=== PATIENT | male | born 1985 | race Caucasian/White ===

== ENCOUNTER 2020-12-16 10:03 | Emergency (ER) | payer OTHER, SELFPAY ==
[2020-12-16 10:08] VITALS: BP 137/80; PULSE 59; RESP 16; TEMP 36.5; O2SAT 97; BMI 24.3
--- NOTE | 2020-12-16 10:13 | CT_ITS ---
WS: [id number] CT HEAD TECHNIQUE: Noncontrast CT of the head obtained from the skullbase to the vertex. CLINICAL INFORMATION: injury COMPARISON: None. DLP: 820.[address] scans at [facility] use at least one of these dose optimization techniques: automat ed exposure control; mA and/or kV adjustment per patient size (includes targeted exams where dose is matched to clinical indication); or iterative reconstruction. FINDINGS: No evidence of intracranial hemorrhage or mass effect. Ventricular system and basal cisterns are talavera nt. No extra-axial fluid collections. No evidence of mass or mass effect. Normal villegas-white different iation. Paranasal sinuses and mastoid air cells are well aerated. . Left scalp laceration and edema. No acute fractures. CT/CT head wo con* [id number] IMPRESSION: 1. No evidence of intracranial hemorrhage or mass effect. 2. Left scalp laceration and edema. No visualized fractures. 3. No acute intracranial findings.
--- NOTE | 2020-12-16 10:13 | XR_ITS ---
WS: [id number] Left hand, 3 views, 12/16/2020 Clinical Data: injury Comparison: None. Findings: No fractures or dislocations are seen. The soft tissues are unremarkable. The joint spaces are normal XR/XR hand LT min 3V* [id number] Impression: Negative left hand.
--- NOTE | 2020-12-16 10:14 | W.ED.HEATRA ---
HPI - Head Injury General: Chief complaint: Trauma Stated complaint: Head injury/hand injury Time Seen by Provider: 12/16/20 10:09 Source: patient Mode of arrival: ambulatory Limitations: no limitations History of Present Illness: HPI Narrative: Patient is a 35-year-old male who presents to ED today for evaluation after a tree limb fell on his head. He is complaining of a headache. He is also having some left hand pain. He complained of dizziness and blurry vision for approximately an hour after he was struck in the head. There was no LOC. Patient is ambulated and articulating normal. He has abrasions to his bilateral upper extremities. Last tetanus is unknown. He denies neck or back pain. MD Complaint: head injury Associated symptoms: Deny confusion, nausea, neck pain, vertigo or vomiting Review of Systems Eyes: Denies: change in vision, blurry vision, floaters or seeing flashes Card: Denies: chest pain Resp: Denies: dyspnea GI: Denies: abdominal pain, nausea or vomiting Musc: Reports: extremity pain (L hand pain); Denies: neck pain, back pain, extremity swelling, joint pain, joint swelling, joint redness, joint warmth or joint stiffness Skin/Breast: Reports: other (reports scalp hematoma) Neuro: Reports: headache(s); Denies: numbness in extremities, weakness in extremities, sensory changes, lack of coordination, difficulty walking, dizziness, vertigo or confusion Physical Exam Const: COMMON NORMALS: no acute distress, average body habitus, patient oriented x3, no limitations, healthy appearing, alert and well nourished GENERAL APPEARANCE: cooperative ORIENTATION/CONSCIOUSNESS: Yes awake, Yes oriented to person, Yes oriented to place and Yes oriented to time HENMT: COMMON NORMALS: normocephalic, hearing grossly normal bilaterally, external ears normal, EAC's normal and TM's normal bilaterally HEAD & SCALP: normal to inspection, normocephalic and other (posterior scalp hematoma present) EXTERNAL EAR: Yes external ears normal EXTERNAL AUDITORY CANAL: EAC's normal TYMPANIC MEMBRANE: TM's normal bilaterally Eye: COMMON NORMALS: Equal, round and reactive pupils present and EOMs intact bilaterally GENERAL EYE: appearance normal, both eyes and all related structures PUPIL: Yes Equal, round and reactive pupils present Neck/C-Spine: COMMON NORMALS: full ROM CERVICAL SPINE: Yes cervical ROM normal, No pain with cervical ROM and No Cervical spine tenderness Chest: COMMONS NORMALS: normal inspection of the chest and normal palpation of entire chest wall Resp: COMMON NORMALS: normal respiratory effort Back/Pelvis: COMMON NORMALS: thoracic and lumbar spine normal to inspection, no thoracic nor lumbar tenderness and thoraco-lumbar ROM normal Extremity: COMMON NORMALS: normal to inspection and full ROM GENERAL: Yes normal exam except as noted OTHER: TTP palmar side of L index MCP joint; no swelling; painful but full ROM; NV intact Neuro: KEV COMA SCALE: document GCS findings [place] coma scale eye opening: Spontaneous Kev coma scale verbal response: Orientated [place] coma scale motor response: Obey commands [place] coma scale total score: 15 COMMON NORMALS: patient oriented x3, CN's II-XII intact bilaterally, moves all extremities, no focal motor deficits, no sensory deficits noted and gait normal SENSORIUM/ORIENTATION: Yes alert, Yes oriented to person, Yes oriented to place and Yes oriented to time Skin: OTHER: scalp hematoma, superficial abrasions to R elbow/forearm-no pain, abrasions to L dorsal hand; otherwise normal skin exam Course Vital Signs: Vital signs: Vital Signs Temperature 97.7 F 12/16/20 10:08 Pulse Rate 72 12/16/20 10:54 Respiratory Rate 16 12/16/20 10:54 Blood Pressure 137/80 12/16/20 10:54 Pulse Oximetry 97 12/16/20 10:54 MDM - Head Injury MDM Narrative: Medical decision making narrative: Of note-CT head reporting scalp laceration-there is no laceration present on exam. Imaging Data^: XR L hand: Radiologist's impression: [address] [address] XRay Report Signed Patient: Cecilio Ward Unit #: [id number] : 1985 Age/Sex: 35 / M ADM Date: 12/16/20 Loc: ER Room/Bed: Attending Dr: Ordering Provider/Ordering MD: Viviana Paez Date of Service: 12/16/20 Procedure(s): XR hand LT min 3V* [id number] Accession Number(s): [id number] Report Number: [id number] WS: [id number] Left hand, 3 views, 12/16/2020 Clinical Data: injury Comparison: None. Findings: No fractures or dislocations are seen. The soft tissues are unremarkable. The joint spaces are normal XR/XR hand LT min 3V* [id number] Impression: Negative left hand. Dictated By: Yomaira Renee MD Signed By: Yomaira Renee MD Signed Date/Time: 12/16/20 1028 DD/ 1028 CT Head: Radiologist's impression: [address] [place] [address] CT Scan Report Signed Patient: Cecilio Ward Unit #: [id number] : 1985 Age/Sex: 35 / M ADM Date: 12/16/20 Loc: ER Room/Bed: Attending Dr: Ordering Provider/Ordering MD: Viviana Paez Date of Service: 12/16/20 Procedure(s): CT head wo con* [id number] Accession Number(s): [id number] Report Number: [id number] WS: [id number] CT HEAD TECHNIQUE: Noncontrast CT of the head obtained from the skullbase to the vertex. CLINICAL INFORMATION: injury COMPARISON: None. DLP: 820.[address] scans at [facility] use at least one of these dose optimization techniques: automated exposure control; mA and/or kV adjustment per patient size (includes targeted exams where dose is matched to clinical indication); or iterative reconstruction. FINDINGS: No evidence of intracranial hemorrhage or mass effect. Ventricular system and basal cisterns are patent. No extra-axial fluid collections. No evidence of mass or mass effect. Normal villegas-white differentiation. Paranasal sinuses and mastoid air cells are well aerated. . Left scalp laceration and edema. No acute fractures. CT/CT head wo con* [id number] IMPRESSION: 1. No evidence of intracranial hemorrhage or mass effect. 2. Left scalp laceration and edema. No visualized fractures. 3. No acute intracranial findings. Dictated By: Amilcar Cueto MD Signed By: Amilcar Cueto MD Signed Date/Time: 12/16/20 1056 DD/ 1050 Discharge Plan Discharge Patient Disposition: Home Clinical Impression: Left hand pain Laceration of scalp Qualifiers: Encounter type: initial encounter Qualified Code(s): S01.01XA - Laceration without foreign body of scalp, initial encounter Condition: Stable Discharge Orders: Discharge ED (Routine); Ordered 12/16/20 Ordered By: Viviana Paez Patient Instructions: Scalp Contusion in Adults (ED) Coding Level of Care Code ED Assembly And Packing Supervisor for Jason Fwlauren Exam Comprehensive
[2020-12-16] MEDS: tetanus-diphtheria tox (adult) 0.5 mL SDV IM (10:44)
[2020-12-16 10:54] VITALS: BP 137/80; PULSE 72; RESP 16; O2SAT 97
[2020-12-16 11:21] VITALS: BP 130/80; PULSE 63; RESP 14; O2SAT 97
== END 2020-12-16 11:22 | disposition home or self-care (01) ==
PROVIDERS: Emergency Provider Physician Assistant
DX: S01.01XA Laceration without foreign body of scalp, initial encounter (principal); M79.642 Pain in left hand; W20.8XXA Other cause of strike by thrown, projected or falling object, initial encounter; Z23 Encounter for immunization
CPT/HCPCS: 70450; 73130; 90471; 90714; 99283

== ENCOUNTER 2022-05-22 02:13 | Emergency (ER) | payer OTHER, SELFPAY ==
[2022-05-22 02:21] VITALS: BP 149/80; PULSE 89; RESP 16; TEMP 37.1; O2SAT 98; BMI 25.6
[2022-05-22 02:28] VITALS: BP 149/80; PULSE 89; RESP 16; TEMP 37.1; O2SAT 98
--- NOTE | 2022-05-22 02:28 | XRR_ITS ---
PROCEDURE INFORMATION: Exam: XR Left Wrist Exam date and time: 05/22/2022 2:53 AM Age: 37 years old Clinical indication: Injury or trauma; Fall; Blunt trauma (contusions or hematomas); Wrist; Left TECHNIQUE: Imaging protocol: Radiologic exam of the Left wrist. Views: 3 or more views. COMPARISON: No relevant prior studies available. FINDINGS: Bones/joints: Acute comminuted intra-articular left distal radius fracture with minimal to mild dorsal displacement. Soft tissues: Left wrist soft tissue swelling and mild deformity. XR/XR wrist LT min 3V* [id number] IMPRESSION: Acute comminuted intra-articular left distal radius fracture with minimal to mild dorsal displacement.
--- NOTE | 2022-05-22 02:28 | XRR_ITS ---
PROCEDURE INFORMATION: Exam: XR Left Hand Exam date and time: 05/22/2022 2:53 AM Age: 37 years old Clinical indication: Injury or trauma; Fall; Blunt trauma (contusions or hematomas); Hand; Left TECHNIQUE: Imaging protocol: Radiologic exam of the Left hand. Views: 3 or more views. COMPARISON: No relevant prior studies available. FINDINGS: Bones/joints: Left hand osseous structures appear intact. No dislocation. Acute comminuted intra-articular left distal radius fracture with minimal to mild dorsal displacement. Soft tissues: Left wrist soft tissue swelling. XR/XR hand LT min 3V* [id number] IMPRESSION: Acute comminuted intra-articular left distal radius fracture with minimal to mild dorsal displacement.
[2022-05-22] MEDS: HYDROcodone-acetaminophen 5-325 mg Tablet 1 TAB PO (02:31)
--- NOTE | 2022-05-22 02:34 | W.ED.EXTPRO ---
HPI - Extremity Problem General: Chief complaint: Extremity Injury, Upper Stated complaint: left arm injury Time Seen by Provider: 05/22/22 02:26 History of Present Illness: 37-year-old male patient comes in today for complaints of injury to the left wrist. Patient was loading up his trailer after his son's race in [place] when he fell off the side catching himself with outstretched arm. Incident occurred about 5:00 on the . Patient come back to have it evaluated in his local ER. Patient has swelling and tenderness to the wrist. Some obvious deformity is noted. Review of Systems General: Reports: 10 or more systems reviewed and unremarkable except in HPI and below Musc: Reports: extremity pain Physical Exam Const: COMMON NORMALS: alert HENMT: COMMON NORMALS: normocephalic HEAD & SCALP: normocephalic Neck/C-Spine: COMMON NORMALS: full ROM Resp: COMMON NORMALS: normal respiratory effort and clear to auscultation bilaterally AUSCULTATION: clear to auscultation bilaterally Cardio: COMMON NORMALS: regular rate RATE: regular rate Back/Pelvis: COMMON NORMALS: thoracic and lumbar spine normal to inspection Extremity: LEFT UPPER EXTREMITY: Yes wrist (Swelling and tenderness to touch) Left wrist: Yes inspection, Yes palpation and Yes ROM and Yes hand & digits (Dorsal swelling) Left hand and digits: Yes inspection, Yes palpation and Yes ROM Neuro: SENSORIUM/ORIENTATION: Yes alert Skin: COMMON NORMALS: no rashes or lesions noted GENERAL SKIN EXAM: no rashes or lesions noted Course Vital Signs: Vital signs: Vital Signs Temperature 98.7 F 05/22/22 02:28 Pulse Rate 89 05/22/22 02:28 Respiratory Rate 16 05/22/22 02:28 Blood Pressure 149/80 05/22/22 02:28 Pulse Oximetry 98 05/22/22 02:28 MDM - Extremity (Nontraumatic) Medical Decision Making 37-year-old male patient comes in today with injury to the left wrist and hand. On exam there is some obvious swelling to the distal forearm wrist area. Patient also has some swelling to the dorsal hand. Decreased range of motion due to pain and swelling is noted. Differential diagnosis includes dislocation, fracture, hematoma. X-ray notes a distal radial fracture comminuted. Recommend patient follow-up with orthopedic surgeon for further treatment. Case management was requested for referral. Patient was written for short course of hydrocodone to help with pain. Patient reported understanding of care plan and need for follow-up. Discharge Plan Discharge Patient Disposition: Home Clinical Impression: Distal radius fracture, left Qualifiers: Encounter type: initial encounter Fracture type: closed Fracture morphology: unspecified fracture morphology Qualified Code(s): S52.502A - Unspecified fracture of the lower end of left radius, initial encounter for closed fracture Condition: Stable Prescriptions: New hydrocodone-acetaminophen 5-325 mg tablet 1 tab PO Q6H PRN (Reason: pain) Qty: 10 0RF Discharge Orders: Discharge ED (Routine); Ordered 05/22/22 Ordered By: Deuce Huerta Discharge Diet: Usual diet Discharge Activity: Limit activity as instructed Patient Instructions: Wrist Fracture in Adults (ED) Activity Restrictions/Additional Instructions: Keep splint clean and dry. Activity as tolerated. Use sling for comfort and support. Follow-up with primary care as needed. Case management will contact you regarding appointment with orthopedist office. Coding Level of Care Code ED Director Of Convention Services for Jason Fwd Exam Comprehensive
[2022-05-22 03:12] VITALS: BP 149/80; PULSE 89; RESP 16; TEMP 37.1; O2SAT 98
--- NOTE | 2022-05-22 10:55 | DCPLANNER ---
Addendum entered by Jennifer Page 05/25/22 14:24: Patient had a follow up appointment scheduled for 05.22.[address] Albright at ortho - patient did attend appointment. Original Note: online services manager had message to schedule a follow up appointment for patient with ortho. online services manager sent patients information to the front office staff at ortho. Patients information will be printed and reviewed. Clinic will call patient with appointment information.
== END 2022-05-22 03:13 | disposition home or self-care (01) ==
PROVIDERS: Emergency Provider Nurse Practitioner Family
DX: S52.502A Unspecified fracture of the lower end of left radius, initial encounter for closed fracture (principal); W17.89XA Other fall from one level to another, initial encounter
CPT/HCPCS: 29125; 73110; 73130; 99283

== ENCOUNTER 2022-05-22 16:17 | Outpatient (CLI) | payer OTHER, SELFPAY | END 2022-05-22 16:18 | disposition home or self-care (01) | LOC: SPT 16:18 | PROVIDERS: Visit Provider Specialist | DX: Z46.89 Encounter for fitting and adjustment of other specified devices (principal); S52.592D Other fractures of lower end of left radius, subsequent encounter for closed fracture with routine healing; X58.XXXD Exposure to other specified factors, subsequent encounter | CPT/HCPCS: 97760; L3982 ==

== ENCOUNTER 2022-05-23 07:48 | Day surgery (SDC) | payer OTHER, SELFPAY ==
[2022-05-22 16:26] VITALS: BMI 26.2
[2022-05-23] VITALS (8 sets, daily range): BP systolic 96–146; BP diastolic 52–98; PULSE 63–87; RESP 12–18; TEMP 36.2–36.7; O2SAT 96–98
--- NOTE | 2022-05-23 | SCC_ITS ---
Procedure done: Open reduction internal fixation left intra-articular comminuted distal radius fracture 147.5 seconds of fluoroscopic guidance, for a cumulative dose of 4.89 mGy, was provided to Dr. Albright by the radiology department. C-arm images of the LEFT wrist were saved for the patient's permanent record. [facility]
--- NOTE | 2022-05-23 | XR_ITS ---
WS: [id number] Exam: XR wrist LT 2V [id number] Date/Time of Exam: 05/23/2022 12:00 AM Reason For Exam: ORIF Left distal wrist Intraoperative lateral C-arm images of the left wrist are submitted for evaluation. There has been volar plate and screw fixation involving a fracture of the distal radius. Alignment is satisfactory in the lateral projection but no AP view of the wrist is available for review at this t ale. No other significant finding on this limited series.
[2022-05-23] MEDS: sodium chloride 0.9% 1,000 ML 30 ML IV (08:15)
[2022-05-23] MEDS: acetaminophen 1,000 MG/100 ML PIGGYBACK 400 MG IV (08:16)
[2022-05-23] MEDS: CELEcoxib 100 mg Capsule 400 MG PO (08:18)
--- NOTE | 2022-05-23 10:46 | W.PM.OPSUD ---
Surgery/Procedure H&P Update DATE OF PROCEDURE: May 23, 2022 DATE H&P PERFORMED: 05/22/22 H&P UPDATE INFORMATION: I have reviewed H&P completed within last 30 days, I have examined patient prior to procedure, No changes to prior documentation and H&P is in [facility] on date indicated PREOP DIAGNOSIS: Comminuted left distal radius fracture PLANNED PROCEDURE: Operation Date: 05/23/22 12:00 Proposed Procedures p LEFT OPEN REDUCTION INTERNAL FIXATION DISTAL RADIUS 51047,S52.509A(Left) - Juliette Albright MD Related Problem List Diagnoses (1) Distal radius fracture, left: Qualifiers: Encounter type: initial encounter Fracture morphology: other intra-articular Fracture type: closed Qualified Code(s): S52.572A - Other intraarticular fracture of lower end of left radius, initial encounter for closed fracture
--- NOTE | 2022-05-23 10:47 | ANES.PREANE2 ---
Pre-Anesthetic Assessment Height/Weight: Height 1.91 m Weight 95.254 kg Temp Pulse Resp BP Pulse Ox O2 Del Method 97.8 F 63 18 125/79 98 05/23/22 08:03 05/23/22 08:03 05/23/22 08:03 05/23/22 08:03 05/23/22 08:03 05/23/22 08:03 Preop Diagnosis: Comminuted left distal radius fracture Operation Date: 05/23/22 12:00 Proposed Procedures p LEFT OPEN REDUCTION INTERNAL FIXATION DISTAL RADIUS 67168,S52.509A(Left) - Juliette Albright MD Familial anesthetic complications: None Was Beta Yuli taken within 24 hours: N/A Was Clonidine taken within 24 hours: N/A Last intake: Intake Last Liquid Date 05/22/22 Last Liquid Time 20:00 Last Solid Date 05/22/22 Last Solid Time 17:00 Social No alcohol and No tobacco Exam alert, oriented x 3, clear to auscultation bilaterally and regular rate & rhythm Airway Mallampati: Class II Dentition: full Anesthetic Plan ASA status: 1 Anesthesia: General and Regional (specify below) Risk of > 500 ml blood loss (7ml/kg in children): No Medications/Allergies Home Medications Medication Instructions Recorded Confirmed Last Taken Type FAST FORM COCK UP SPLINT #1 ea 05/22/22 05/22/22 Unknown Rx hydrocodone 5 mg-acetaminophen 325 1 tab PO Q6H PRN pain #10 tabs 05/22/22 05/23/22 05/22/22 Rx mg tablet Allergies Allergy/AdvReac Type Severity Reaction Status Date / Time No Known Allergies Allergy Verified 05/22/22 16:23 Current Medications Generic Name Dose Route Start Last Admin Trade Name Freq PRN Reason Stop Dose Admin Sodium Chloride 1,000 mls @ 30 mls/hr 05/23/22 08:00 05/23/22 08:15 Sodium Chloride 0.9% IV 05/24/22 07:59 30 mls/hr .Q24H NACHO Administration PFSH Anesthesia Social History Smoking and tobacco status: never smoked Data Anesthesia Cardiac Studies: No Data to Display
--- NOTE | 2022-05-23 11:09 | ANES.PROC ---
Anesthesia Procedures Procedure/Date: 05/23/22 Nerve Block ^: Nerve Block 1: Main Anesthesia: general anesthesia Time Out Performed: Yes Consent: requested by attending/covering physician, from patient, risks and benefits reviewed and patient agrees to proceed Nerve block location: axillary (L + musculcutaneous) Anesthesia monitors applied: pulse oximetry, EKG, BP cuff and oxygen Nerve block position: supine Anesthetic Used: ropivicaine 0.5% (30) and with decadron (4 mg) Ultrasound used to: recognize landmarks and visualize and ID brachial plexus Nerve Stimulator Used?: No Interscalene/Femoral BLK: 2 stimuplex 22 g needle used for position and inplane approach, visualize local anesthetic spread and no vascular puncture identified Injection: neg aspiration of heme and paresthesia +/- Patient Tolerated Procedure: well and no complications Complications: none
[2022-05-23] MEDS: ceFAZolin 2,000 MG in sodium chloride 0.9% (plus) 50 ML 100 MG IV (12:30)
[2022-05-23] MEDS: ceFAZolin 1,000 mg SDV 1000 MG IRRIGATION (13:06)
--- NOTE | 2022-05-23 13:57 | PM.OP ---
Operative Report Date of procedure: May 23, 2022 Pre-op diagnosis: Comminuted left distal radius intraarticular fracture Post-op diagnosis: Comminuted left distal radius intraarticular fracture Post-op findings: Comminution of the distal radius with significant angulation Procedure done: Open reduction internal fixation left intra-articular comminuted distal radius fracture Implants: Belle distal radius volar plate, standard extra short Specimens removed/disposition: None Pathology: none sent Surgeon: Juliette Albright [employer] Manager: [facility] operating room technicians Anesthesia: General (Per LMA, ASA 1) Estimated blood loss (mL): 5 Tourniquet time (min): 60 (At 250 mmHg) IV fluids (mL): 800 Urine output (mL): 0 (No Farfan) Complications: None Findings: Significantly comminuted intra-articular distal radius fracture with significant displacement Condition: stable Disposition: PACU (Then return to same-day surgery for discharge home with family) Brief History: This 37-year-old gentleman was in his usual state of health when he fell from a trailer while removing 4 wheelers. He fell directly onto his left upper extremity. He had deformity and pain immediately. He has an intra-articular comminuted angulated distal radius fracture. After discussion in the office, we elected to proceed with open reduction internal fixation to give him the best functional result. Risks and complications were discussed with the patient and consents were signed. Questions were answered. Procedure: Patient was brought to the operating theater, and after undergoing adequate general anesthesia, LMA, ASA 1, the patient's left upper extremity was prepped and draped in usual fashion utilizing DuraPrep.? A supplemental block was placed per anesthesia.? The patient had a tourniquet placed high on the arm prior to prepping and draping.? Following prepping and draping, the arm was exsanguinated and the tourniquet was elevated.? Total tourniquet time was 60 minutes at 250 mmHg.? Prior to commencement of the surgical procedure, a surgical pause was performed.? At the time of the surgical pause, we confirmed the site and side of surgery as well as the patient's identity and preoperative surgical markings.? We also confirmed availability of equipment and appropriate preoperative IV antibiotics which was Ancef 2 g.? Fluoroscopy was also brought into position so that we could visualize the fracture and hardware throughout the surgical procedure.? The fracture was evaluated prior to tourniquet placement. Following elevation of the tourniquet as well as the surgical pause, appropriate plate was chosen. The skin was marked for appropriate incision length and location. An incision was made along the palmaris longus and continued down onto the volar surface of the radius.? Care was taken to avoid injury throughout the surgical procedure to the median nerve as well as to the radial artery.? The flexor carpi radialis was retracted medially.? We were able to essentially elevate the sheath of the flexor carpi radialis, and then I was able to place my finger directly onto the distal radius.? For the most part, the patient did his own dissection at the time of his injury.? Soft tissues were elevated off the distal radius to allow access to the fracture and also to the volar aspect of the distal radial shaft.? Reduction required manipulation, and following manipulation, the fracture was essentially anatomic. Fluoroscopy was used to determine whether or not the reduction was appropriate.? We were able to reduce the fracture nearly anatomically.? We then evaluated the plate and chose the extra short Belle volar distal radius plate.? The plate was attached proximally and distally without difficulty.? A combination of locking and 1 nonlocking screw was utilized to attach the plate.? We had excellent fixation and reduction of the fracture. Fluoroscopy was utilized during the procedure.? Once the plate was fully attached, we had a near anatomic position to the distal radius and the distal radius was out to length.? Being satisfied with position, the area was copiously irrigated. There were no fascial tissues to close, and therefore, we closed the subcutaneous tissues with 2-0 interrupted Monocryl.? Skin was closed in a subcuticular fashion with 3-0 Monocryl.?Sterile dressing was then placed consisting of Dermabond, Steri-Strips, OpSite, fluffed fluffs, sterile soft roll, a volar splint, and an Luis wrap. The tourniquet was released after 60 minutes. There were no complications. There were no specimens. The procedure was well tolerated. Plan is the patient will be discharged home. Related Problem List Diagnoses (1) Distal radius fracture, left:
[2022-05-23] MEDS: oxyCODONE 5 mg IR Tab/Cap PO (14:52)
--- NOTE | 2022-05-23 19:11 | ANE.PACU2 ---
Inpatient post-anesthesia follow up: Airway intact: Yes Vital signs: Temperature 98.0 F Pulse Rate 87 Respiratory Rate 16 Blood Pressure 146/98 Pulse Oximetry 98 Oxygen Delivery Me thod Room Air Oxygen Flow Rate Fraction of Inspir ed Oxygen Hydration adequate: Yes Nausea and vomiting: No Pain level: 1 Mental status: Baseline
== END 2022-05-23 15:15 | disposition home or self-care (01) ==
PROVIDERS: PCP Electrodiagnostic Medicine; Visit Provider Specialist
PROC: (CPT 25609; principal; 2022-05-23 11:40)
DX: S52.572A Other intraarticular fracture of lower end of left radius, initial encounter for closed fracture (principal); W01.0XXA Fall on same level from slipping, tripping and stumbling without subsequent striking against object, initial encounter
CPT/HCPCS: 25609; 73100; 76000; C1713; J0690; J1100; J2250; J2405; J2704; J2795; J3010; J3490; J7030

== ENCOUNTER → 2022-06-06 12:56 | Outpatient (BNVA) | payer OTHER, SELFPAY | PROVIDERS: PCP Electrodiagnostic Medicine; Visit Provider Nurse Practitioner Family | DX: Z98.890 Other specified postprocedural states (principal); S52.502A Unspecified fracture of the lower end of left radius, initial encounter for closed fracture; X58.XXXA Exposure to other specified factors, initial encounter | CPT/HCPCS: 73110 ==

== ENCOUNTER → 2022-07-06 08:51 | Outpatient (BNVA) | payer OTHER, SELFPAY | PROVIDERS: PCP Electrodiagnostic Medicine; Visit Provider Nurse Practitioner Family | DX: Z98.890 Other specified postprocedural states (principal) | CPT/HCPCS: 73110 ==

== ENCOUNTER → 2022-08-17 09:59 | Outpatient (BNVA) | payer OTHER, SELFPAY | PROVIDERS: PCP Electrodiagnostic Medicine; Visit Provider Nurse Practitioner Family | DX: S52.502D Unspecified fracture of the lower end of left radius, subsequent encounter for closed fracture with routine healing (principal); X58.XXXD Exposure to other specified factors, subsequent encounter; Z98.890 Other specified postprocedural states | CPT/HCPCS: 73110 ==

== ENCOUNTER 2023-06-19 09:17 | Emergency (ER) | payer OTHER, SELFPAY ==
--- NOTE | 2023-06-19 09:20 | ED_ITS ---
HPI - Abdominal Pain General: Chief Complaint: Nausea/Vomiting/Diarrhea Stated Complaint: Abd pain Time Seen by Provider: 06/19/23 09:19 Source: patient Mode of arrival: ambulatory Limitations: no limitations History of Present Illness: Patient is a nice 38-year-old male who presents to the ED today with complaint of intermittent epigastric pain only present with eating. He states he first noticed symptoms approximately 2 days or so ago. He states when symptoms first started he did notice a fever but this has since subsided and has not returned. He states pain will come on when he eats or drinks anything and has not noticed any specific foods worsening his symptoms. He states shortly after eating he will then have a green diarrhea stool. He is not having any nausea or vomiting. Denies previous abdominal pains or surgeries. MD elicited complaint: abdominal pain Pertinent past history: none Onset (ago): day(s) Pain Consistency: intermittent Location: Epigastric Severity: moderate Radiation: none Migration to: no migration Exacerbating factors: eating Relieving factors: nothing Associated Symptoms: Reports diarrhea and fever(s) (reports fever 2 days ago but subsided since then); Denies dysuria, hematochezia, hematuria, melena, nausea and vomiting Review of Systems Const: Reports: fever(s) (reports fever 2 days ago but subsided since then); Denies: body aches, fatigue or malaise Card: Denies: chest pain Resp: Denies: dyspnea GI: Reports: abdominal pain and diarrhea; Denies: nausea, vomiting, hematochezia, melena, mucus in stool or white/light colored stool : Denies: flank pain, dysuria or hematuria Musc: Denies: neck pain, back pain, extremity pain, extremity swelling or joint pain Skin/Breast: Denies: rash Neuro: Denies: headache(s), numbness in extremities, weakness in extremities or sensory changes PFSH ED PFSH: Social History Smoking and tobacco status: never smoked Physical Exam Const: COMMON NORMALS: no acute distress, average body habitus, no limitations, healthy appearing and well nourished Eye: COMMON NORMALS: no scleral icterus Chest: COMMONS NORMALS: normal inspection of the chest and normal palpation of entire chest wall Resp: COMMON NORMALS: normal respiratory effort and clear to auscultation bilaterally AUSCULTATION: clear to auscultation bilaterally Cardio: COMMON NORMALS: regular rate and regular rhythm RATE: regular rate RHYTHM: regular rhythm GI: COMMON NORMALS: Normal to inspection, nondistended, normoactive bowel sounds present, Soft to palpation, No hepatosplenomegaly present and no masses INSPECTION: Yes normal to inspection PALPATION: Yes Soft to palpation, Yes Tenderness to palpation present (GI) (mild epigastric; negative Johnson's), No Guarding due to palpation present (GI), No Rigid due to palpation and Yes No hepatosplenomegaly present : COMMON NORMALS: Yes no CVA tenderness BLADDER/KIDNEY EXAM: Yes no CVA tenderness Back/Pelvis: COMMON NORMALS: no CVA tenderness Neuro: KEV COMA SCALE: document GCS findings Kev coma scale eye op ening: Spontaneous [place] coma scale verbal response: Orientated [place] coma scale motor response: Obey commands [place] coma scale total score: 15 Skin: COMMON NORMALS: no rashes or lesions noted GENERAL SKIN EXAM: no rashes or lesions noted Course Vital Signs: Vital signs: Vital Signs Temperature 97.9 F 06/19/23 09:22 Pulse Rate 65 06/19/23 11:17 Respiratory Rate 17 06/19/23 11:17 Blood Pressure 140/87 06/19/23 11:17 Pulse Oximetry 98 06/19/23 11:17 Oxygen Delivery Me thod Room Air 06/19/23 10:56 MDM - Abdominal Pain Medical Decision Making Patient clinically appears non-ill/nontoxic. Vital signs are normal. Blood work is unremarkable. He has a normal white count. Urine was not able to be obtained. He was not able to give a stool sample here. CT imaging showing acute edema/hyperemia involving a large portion of the colon and distal small bowel. Radiologist stated this would favor an acute exacerbation of inflammatory bowel disease or infection. Patient has no history of inflammatory bowel disease. Will go ahead and place him on steroids and bowel rest and have him follow-up with his primary care provider Dr. Jackson. Return to ED precautions given. Lab Data 06/19/23 09:49 06/19/23 09:49 Labs/Radiology: Laboratory Results WBC 8.26 10^3/uL (3.29-11.43) 06/19/23 09:49 RBC 4.58 10^6/uL (3.85-5.65) 06/19/23 09:49 Hgb 14.10 g/dL (11.27-16.99) 06/19/23 09:49 Hct 41.6 % (37-53) 06/19/23 09:49 MCV 90.8 fl (82-101) 06/19/23 09:49 MCH 30.8 pg (27-33) 06/19/23 09:49 MCHC 33.9 g/dL (30-55) 06/19/23 09:49 RDW 12.3 % (12.1-15.1) 06/19/23 09:49 Plt Count 215 10^3/cmm (157-399) 06/19/23 09:49 MPV 9.0 fL (7.4-10.4) 06/19/23 09:49 Neut % (Auto) 69.8 % 06/19/23 09:49 Lymph % (Auto) 17.6 % 06/19/23 09:49 Alexander % (Auto) 10.8 % 06/19/23 09:49 Eos % (Auto) 1.1 % 06/19/23 09:49 Baso % (Auto) 0.5 % 06/19/23 09:49 Neut # (Auto) 5.77 10^3/uL (1.8-7.7) 06/19/23 09:49 Lymph # (Auto) 1.5 10^3/uL (0.8-4.8) 06/19/23 09:49 Alexander # (Auto) 0.9 10^3/uL (0.2-0.9) 06/19/23 09:49 Eos # (Auto) 0.1 10^3/uL (0.0-0.8) 06/19/23 09:49 Baso # (Auto) 0.0 10^3/uL (0.0-0.1) 06/19/23 09:49 Nucleated RBC % (auto) 0 % 06/19/23 09:49 Nucleated RBCs # 0.0 /100WBC 06/19/23 09:49 Sodium 137 mmol/L (136-145) 06/19/23 09:49 Potassium 3.7 mmol/L (3.5-5.1) 06/19/23 09:49 Chloride 104 mmol/L (98-107) 06/19/23 09:49 Carbon Dioxide 24 mmol/L (22-29) 06/19/23 09:49 Anion Gap 12.7 (5-19) 06/19/23 09:49 BUN 9 mg/dL (6-20) 06/19/23 09:49 Creatinine 0.8 mg/dL (0.7-1.2) 06/19/23 09:49 GFR Calculation 108.2 mL/min (90-130) 06/19/23 09:49 Glucose 122 mg/dL (65-115) H 06/19/23 09:49 Calculated Osmolality 284 mOsm/kg (285-295) L 06/19/23 09:49 Calcium 8.6 mg/dL (8.5-10.5) 06/19/23 09:49 Total Bilirubin 0.3 mg/dL (0.15-1.2) 06/19/23 09:49 AST 15 U/L (0-40) 06/19/23 09:49 ALT 14 U/L (0-41) 06/19/23 09:49 Alkaline Phosphatase 52 U/L (40-130) 06/19/23 09:49 Total Protein 7.2 g/dL (6.6-8.7) 06/19/23 09:49 Albumin 4.4 g/dL (3.5-5.2) 06/19/23 09:49 Globulin 2.8 g/dL (1.3-4.6) 06/19/23 09:49 Lipase 16 U/L (13-60) 06/19/23 09:49 Discharge Plan Discharge Patient Disposition: Home Clinical Impression: Colitis, Enteritis Condition: Stable Prescriptions: New prednisone 10 mg tablet 60 mg PO DAILY 5 Days Qty: 30 0RF No Action (DME) FAST FORM COCK UP SPLINT See Rx Instructions .Route .MEDSUPPLY Qty: 1 0RF Rx Instructions: As directed Discharge Orders: Discharge ED (Routine); Ordered 06/19/23 Ordered By: Viviana Paez Referrals: Jose Jackson DO [Primary Care Provider] - Patient Instructions: Colitis (ED), Enteritis (ED) Activity Restrictions/Additional Instructions: As discussed please start a bowel rest protocol involving clear liquid diet for 48-72 hours and slowly advance to soft foods and then normal diet following this. We will try to place you on steroids to decrease inflammation. Please foll ow up with Dr. Jackson Coding Level of Care Code ED Outpatient Dietitian for Jason Rosales
[2023-06-19 09:22] VITALS: BP 152/89; PULSE 77; RESP 16; TEMP 36.6; O2SAT 97; BMI 26.9
[2023-06-19 09:55] LABS: Basophils % 0.5 %; Eosinophils # 0.1 10^3/uL (0.0-0.8); Eosinophils % 1.1 %; Hematocrit 41.6 % (37-53); Lymphocytes # 1.5 10^3/uL (0.8-4.8); Lymphocytes % 17.6 %; Mean Corpuscular HGB Conc 33.9 g/dL (30-55); Mean Corpuscular Hemoglobin 30.8 pg (27-33); Mean Corpuscular Volume 90.8 fl (82-101); Monocytes # 0.9 10^3/uL (0.2-0.9); Monocytes % 10.8 %; Neutrophils # 5.77 10^3/uL (1.8-7.7); Neutrophils % 69.8 %; Nucleated Red Blood Cells % 0 %; Platelet Count 215 10^3/cmm (157-399); Red Blood Count 4.58 10^6/uL (3.85-5.65); Red Cell Distribution Width 12.3 % (12.1-15.1); White Blood Count 8.26 10^3/uL (3.29-11.43)
[2023-06-19] MEDS: lidocaine 2% viscous 15 ML, aluminum-mag hydrox-simethicon 30 ML, sucralfate oral liq 1 GM PO (10:01)
[2023-06-19 10:22] LABS: Alanine Aminotransferase 14 U/L (0-41); Albumin Level 4.4 g/dL (3.5-5.2); Alkaline Phosphatase 52 U/L (40-130); Anion Gap 12.7 (5-19); Aspartate Amino Transferase 15 U/L (0-40); Blood Urea Nitrogen 9 mg/dL (6-20); Calcium 8.6 mg/dL (8.5-10.5); Carbon Dioxide 24 mmol/L (22-29); Chloride 104 mmol/L (98-107); Globulin 2.8 g/dL (1.3-4.6); Glomerular Filtration Rate 108.2 mL/min (90-130); Glucose 122 mg/dL (65-115); Lipase 16 U/L (13-60); Osmolality Calculated 284 mOsm/kg (285-295); Potassium 3.7 mmol/L (3.5-5.1); Sodium 137 mmol/L (136-145); Total Bilirubin 0.3 mg/dL (0.15-1.2); Total Protein 7.2 g/dL (6.6-8.7)
--- NOTE | 2023-06-19 10:23 | CT_ITS ---
WS: [id number] CT ABDOMEN AND PELVIS WITH CONTRAST HISTORY: abdominal pain, diarrhea TECHNIQUE: Imaging performed of the abdomen and pelvis with IV contrast. Single phase imaging of the abdomen. Coronal and sagittal reformats are submitted. All CT scans at [facility] use at [address] one of these dose optimization techniques: automated exposure control; mA and/or kV adjustment per patient size (includes targeted exams where dose is matched to clinical indication); or iterative re construction. IV CONTRAST: Omnipaque 350; 100 mL IV. Oral contrast: No DLP: 742.83 mGy.cm COMPARISON: None available. Lower thorax: Mild dependent changes at the lung bases. Heart is normal size. No hiatal hernia. Liver/biliary system: Normal size with no intrahepatic dilatation. Gallbladder: Mildly contracted. Pancreas: Normal size pancreas and pancreatic duct. No adjacent inflammation. Spleen: Spleen is top normal size at 13.4 cm in length. Adrenal glands: Normal. Right kidney: Normal. Left kidney: Normal. Aorta: Normal. Lymphadenopathy: None. Free fluid: Very small amount of free fluid present within the pelvis. GI tract: Mild thickening and inflammation involving the antrum of the stomach. No small bowel obstru ction. There is mild diffuse submucosal edema throughout the colon. Greatest involvement of the RIGHT colon and the distal small bowel also. Mild wall thickening and enhancement involving the distal col on. There is no obstruction pattern and no perforation. Abdominal wall: Fat containing umbilical hernia. Pelvis: Tiny amount of free fluid in the pelvis. Negative urinary bladder. Bones: Unremarkable. IMPRESSION: 1. Acute submucosal edema with mild mucosal hyperemia involving a large portion of the colon and als o the distal small bowel. Favor acute exacerbation of inflammatory bowel disease or infection. 2. Small amount of free fluid in the pelvis. 3. No free air.
[2023-06-19] MEDS: iohexol 350 mg/mL 500 mL Btl (per mL) IV (10:34)
[2023-06-19 10:56] VITALS: BP 147/88; PULSE 68; RESP 17; O2SAT 98
[2023-06-19 11:17] VITALS: BP 140/87; PULSE 65; RESP 17; O2SAT 98
== END 2023-06-19 12:00 | disposition home or self-care (01) ==
PROVIDERS: Emergency Provider Physician Assistant; PCP Electrodiagnostic Medicine
DX: K52.9 Noninfective gastroenteritis and colitis, unspecified (principal)
CPT/HCPCS: 74177; 80053; 83690; 85025; 99285; Q9967

== ENCOUNTER 2023-09-21 13:31 | Outpatient (CLI) | payer OTHER, SELFPAY ==
--- NOTE | 2023-09-21 13:38 | MR_ITS ---
WS: [id number] MRI LUMBAR SPINE NONCONTRAST TECHNIQUE: Sagittal T1, T2 and STIR imaging. Axial T1 and T2 imaging. CLINICAL INFORMATION: LUMBAR RADICULOPATHY COMPARISON: None. FINDINGS: Mild lumbar curve. No acute compression. No high-grade central canal stenosis. Few incidental hemangi omas in the lumbar spine. Endplate Schmorl's node superior endplate L2. L1-L2: Normal. L2-L3: Mild annular bulging. Slight effacement of the ventral thecal sac. Spinal canal and foramen ar e patent. L3-L4: Mild annular bulging. Slight effacement of ventral thecal sac. Mild facet arthropathy. Small R IGHT foraminal protrusion slightly impinges the exiting RIGHT L3 nerve root with a small annular fiss ure. Mild RIGHT foraminal narrowing. LEFT foramen is patent. L4-L5: Mild annular bulging. Slight impingement on the traversing LEFT greater than RIGHT L5 nerve ro ots. Mild facet arthropathy. Mild LEFT and no significant RIGHT foraminal narrowing. L5-S1: Mild annular bulging. Tiny RIGHT paracentral protrusion. Slight impingement on the RIGHT S1 ne rve root in the subarticular recess. Mild RIGHT foraminal narrowing. Mild facet arthropathy. Visualized pelvic bony structures: Normal. Paravertebral soft tissues: Normal. Tiny central protrusion on the nuclear chemistry technician imaging at T2-3. IMPRESSION: 1. Mild lumbar curve. No acute compression. No high-grade central canal stenosis. 2. Small RIGHT foraminal protrusion L3-4 with a small annular fissure. Slight impingement exiting RI GHT L3 nerve root with mild RIGHT foraminal narrowing. 3. LEFT paracentral protrusion L4-5 impinges traversing LEFT L5 nerve root in the subarticular reces s. Mild LEFT foraminal narrowing. 4. Tiny RIGHT paracentral protrusion L5-S1 with slight impingement on the RIGHT S1 nerve root.
== END 2023-09-21 13:32 | disposition home or self-care (01) ==
PROVIDERS: PCP Electrodiagnostic Medicine; Visit Provider Electrodiagnostic Medicine
DX: M54.16 Radiculopathy, lumbar region (principal); M48.061 Spinal stenosis, lumbar region without neurogenic claudication; M51.27 Other intervertebral disc displacement, lumbosacral region
CPT/HCPCS: 72148